=== PATIENT | male | born 1955 | race Hispanic/Latino ===

== ENCOUNTER 2018-08-16 07:15 | Day surgery (SDC) | payer MEDICARE ==
[2018-08-14 12:09] LABS: BASOPHILS % (AUTO) 0.5 % (0.0-5.0); EOSINOPHILS % (AUTO) 3.3 % (0.0-8.0); LYMPHOCYTES % (AUTO) 12.7 % (21.0-51.0); MEAN CORPUSCULAR HEMOGLOBIN 34.7 pg (27.0-33.0); MEAN CORPUSCULAR HGB CONC 35.5 g/dL (32.0-36.0); MEAN CORPUSCULAR VOLUME 97.8 fL (79-99); MONOCYTES % (AUTO) 5.9 % (3.0-13.0); NEUTROPHILS % (AUTO) 77.6 % (40.0-77.0); NUCLEATED RED BLOOD CELLS 0.1 % (0.0-0.19); PLATELET COUNT (AUTO) 180 K/uL (130-400); RED BLOOD CELL COUNT(AUTO) 3.37 MIL/uL (4.50-6.20); RED CELL DISTRIBUTION WIDTH 13.8 % (11.0-15.5); WHITE BLOOD COUNT (AUTO) 7.6 K/uL (4.8-10.8)
[2018-08-14 12:17] LABS: POTASSIUM 4.8 mmol/L (3.5-5.1)
[2018-08-14 12:18] VITALS: BP 119/55
[2018-08-14 12:26] LABS: CREATININE 8.7 mg/dL (0.5-1.5)
[2018-08-14 12:38] LABS: INR 0.99 (0.85-1.15); PARTIAL THROMBOPLASTIN TIME 29.6 SEC (26.3-35.5); PROTHROMBIN TIME 10.4 SEC (9.6-11.6)
--- NOTE | 2018-08-14 14:43 | NUR ---
advised Kenji VALENZUELA of BUN 40, RADIATION ONCOLOGIST 8.7 and that pt was not able to urinate due to being on dialysis and pt does not void. Per Chandan no new orders in regards to bun and precinct police lieutenant, okay to cancel urine.
[2018-08-16] VITALS (19 sets, daily range): BP systolic 133–164; BP diastolic 41–80
[~2018-08-16] VITALS: Ht 179.1 cm; Wt 116.1 kg
[~2018-08-16 07:15] MED LIST: AMLO5TAB9 PO; ASPI-891 PO; ATOR-2 PO; CHOL20004 PO; CINA30 PO; CLOP75TA14 PO; FAMO-136 PO; FOLI1TAB61 PO; HUMLIS7525 SQ; INSU100C14 SQ; ISOS60TA4 PO; LEVO25TA54 PO; LOSA100T58 PO; METO100T14 PO; NITR0.4T SL; SODIUM CHLORIDE 0.9% 500ML 500 ML IV SCH
[2018-08-16] MEDS ORDERED: INSULIN HUMULIN R 100 UNIT/ML 3ML SQ SCH ×2 (07:30→11:30)
[2018-08-16] MEDS ORDERED: SODIUM CHLORIDE 0.9% 1000ML 1,000 ML IV ONE (07:34)
[2018-08-16] MEDS ORDERED: IODIXANOL 320 MG/ML 100 ML VIAL ONE (09:35)
[2018-08-16] MEDS ORDERED: HEPARIN SODIUM 1000UNIT/ML 10ML VIAL ONE (09:35)
[2018-08-16] MEDS ORDERED: NITROGLYCERIN 5 MG/ML 10 ML VIAL IV ONE (09:35)
[2018-08-16] MEDS ORDERED: SODIUM BICARB 50MEQ 50ML VIAL ONE (09:35)
[2018-08-16] MEDS ORDERED: LIDOCAINE HCL 2% 20ML ONE (09:36)
[2018-08-16] MEDS ORDERED: FENTANYL CITRATE PF 50 MCG/1 ML 2ML VIAL ONE (09:52)
[2018-08-16] MEDS ORDERED: MIDAZOLAM HCL 1 MG/ML 2ML VIAL ONE (09:52)
[2018-08-16] MEDS ORDERED: DEXTROSE 50%-WATER 50 ML DISP.SYRIN IV PRN (10:30)
[2018-08-16] MEDS ORDERED: HYDRALAZINE HCL 20 MG/ML VIAL IV PRN (10:30)
[2018-08-16] MEDS ORDERED: NITROGLYCERIN 0.4 MG SL TAB SL PRN (10:30)
[2018-08-16] MEDS ORDERED: GLUCAGON 1MG KIT 1 MG ML IM PRN (10:30)
[2018-08-16] MEDS ORDERED: ATROPINE SULFATE 0.1 MG/ML 10 ML SYG IVP ONE (11:07)
[2018-08-16] MEDS ORDERED: ACETAMINOPHEN-CODEINE 300/30MG TAB ONE (14:11)
[2018-08-16] MEDS ORDERED: ACETAMINOPHEN-CODEINE 300/30MG TAB PO SCH (14:45)
== END 2018-08-16 16:40 | disposition home or self-care (01) ==
LOC: DAH 07:15
PROVIDERS: ATTEND Internal Medicine Cardiovascular Disease
DX: I65.23 Occlusion and stenosis of bilateral carotid arteries (principal); Z79.899 Other long term (current) drug therapy; Z98.890 Other specified postprocedural states; Z79.01 Long term (current) use of anticoagulants; Z83.3 Family history of diabetes mellitus; E03.9 Hypothyroidism, unspecified; E66.9 Obesity, unspecified; E11.51 Type 2 diabetes mellitus with diabetic peripheral angiopathy without gangrene; E11.21 Type 2 diabetes mellitus with diabetic nephropathy; N18.6 End stage renal disease; Z99.2 Dependence on renal dialysis; E11.40 Type 2 diabetes mellitus with diabetic neuropathy, unspecified
CPT/HCPCS: 36223; 36415; 71045; 80048; 82948 ×2; 85025; 85610; 85730; 93005; C1769; C1894 ×2; J0360; J1644; J1815 ×2; J2250; J3010; J3490 ×3; J7030; Q9967; 99156; 99157; J0461

== ENCOUNTER → 2018-09-10 | Outpatient (CLI) | payer MEDICARE ==
[~2018-09-10] VITALS: Ht 180.3 cm; Wt 117.2 kg
[~2018-09-10] MED LIST changes: +ASPI-1181 PO; +BACITRACIN 50,000 UNIT VIAL ONE; +BUPIVACAINE/EPI/PF 0.25% 30ML VIAL IJ ONE; +DEXAMETHASONE SOD PHOSPHATE 10MG/ML 1ML VIAL ONE; +EPHEDRINE SULFATE 50 MG/ML AMPULE ONE; +FENTANYL CITRATE PF 50 MCG/1 ML 2ML VIAL ONE; +GLYCOPYRROLATE 1 MG/5 ML SYRINGE ONE; +KETAMINE HCL 50MG/ML 10ML VIAL IJ ONE; +LIDOCAINE HCL 1% MDV 50ML VIAL ONE; +LIDOCAINE PF 2% 5ML ABBOJECT ONE; +MIDAZOLAM HCL 1 MG/ML 2ML VIAL ONE; +NEOSTIGMINE 5MG/5ML SYR IV ONE; +ONDANSETRON HCL 4 MG/2 ML VIAL ONE; +PROPOFOL 10 MG/ML 20ML VIAL IV ONE; +ROCURONIUM 10MG/1ML SYR 10 MG/ML ML ONE; +SODIUM CHLORIDE 0.9% 1000ML 1,000 ML IV ONE; -SODIUM CHLORIDE 0.9% 500ML 500 ML IV SCH; +SUCCINYLCHOLINE 200MG/10ML SYR ONE; +THROMBIN-JMI 20000 UNIT KIT TP ONE
[2018-09-10 09:15] VITALS: BP 147/72
[2018-09-10 09:35] LABS: BASOPHILS % (AUTO) 0.8 % (0.0-5.0); EOSINOPHILS % (AUTO) 4.7 % (0.0-8.0); LYMPHOCYTES % (AUTO) 16.4 % (21.0-51.0); MEAN CORPUSCULAR HEMOGLOBIN 33.6 pg (27.0-33.0); MEAN CORPUSCULAR HGB CONC 34.3 g/dL (32.0-36.0); MEAN CORPUSCULAR VOLUME 98.2 fL (79-99); NEUTROPHILS % (AUTO) 72.1 % (40.0-77.0); PLATELET COUNT (AUTO) 199 K/uL (130-400); RED BLOOD CELL COUNT(AUTO) 3.46 MIL/uL (4.50-6.20); RED CELL DISTRIBUTION WIDTH 13.9 % (11.0-15.5); WHITE BLOOD COUNT (AUTO) 9.4 K/uL (4.8-10.8)
[2018-09-10 09:44] LABS: POTASSIUM 5.4 mmol/L (3.5-5.1)
[2018-09-10] MEDS: CEFAZOLIN SODIUM 1 GM VIAL IVP SCH (11:00)
--- NOTE | 2018-09-11 09:20 | NUR ---
LABS ABNORMAL LABS REPORTED TO DR. BILLINGS, MESSAGE LEFT WITH BERT. PENDING FURTHER ORDERS
--- NOTE | 2018-09-11 10:51 | NUR ---
LABS ORDERS RECEIVED TO REPEAT K+ AM OF SURGERY
[2018-09-12 06:13] VITALS: BP 133/55
[2018-09-12] MEDS: CEFAZOLIN SODIUM 1 GM VIAL IVP SCH (06:40)
== END | disposition home or self-care (01) ==
LOC: DAH 10:00 → EDSTATUS 10:30 → DAHIP 09-12 05:48 → UNDOADMIN 09-12 05:48 → UNDODISIN 09-12 11:50
PROVIDERS: ATTEND Neurological Surgery
DX: I65.23 Occlusion and stenosis of bilateral carotid arteries (principal); Z53.8 Procedure and treatment not carried out for other reasons; I10 Essential (primary) hypertension; E11.9 Type 2 diabetes mellitus without complications; Z86.73 Personal history of transient ischemic attack (TIA), and cerebral infarction without residual deficits; Z95.1 Presence of aortocoronary bypass graft
CPT/HCPCS: 36415; 80051; 82310; 82565; 82947; 82948; 84132; 84520; 85025

== ENCOUNTER 2018-09-28 14:00 | Inpatient (IN) | payer MEDICARE ==
[~2018-09-28] VITALS: Ht 180.3 cm; Wt 115.7 kg
[~2018-09-28 14:00] MED LIST changes: -ASPI-1181 PO; -ASPI-891 PO; -BACITRACIN 50,000 UNIT VIAL ONE; -BUPIVACAINE/EPI/PF 0.25% 30ML VIAL IJ ONE; -CHOL20004 PO; -CINA30 PO; -DEXAMETHASONE SOD PHOSPHATE 10MG/ML 1ML VIAL ONE; -EPHEDRINE SULFATE 50 MG/ML AMPULE ONE; -FENTANYL CITRATE PF 50 MCG/1 ML 2ML VIAL ONE; -GLYCOPYRROLATE 1 MG/5 ML SYRINGE ONE; -KETAMINE HCL 50MG/ML 10ML VIAL IJ ONE; -LIDOCAINE HCL 1% MDV 50ML VIAL ONE; -LIDOCAINE PF 2% 5ML ABBOJECT ONE; -MIDAZOLAM HCL 1 MG/ML 2ML VIAL ONE; -NEOSTIGMINE 5MG/5ML SYR IV ONE; -ONDANSETRON HCL 4 MG/2 ML VIAL ONE; -PROPOFOL 10 MG/ML 20ML VIAL IV ONE; -ROCURONIUM 10MG/1ML SYR 10 MG/ML ML ONE; -SODIUM CHLORIDE 0.9% 1000ML 1,000 ML IV ONE; -SUCCINYLCHOLINE 200MG/10ML SYR ONE; -THROMBIN-JMI 20000 UNIT KIT TP ONE
[2018-09-28 15:43] VITALS: BP 156/58
[2018-09-28 15:44] LABS: BASOPHILS % (AUTO) 1.1 % (0.0-5.0); EOSINOPHILS % (AUTO) 4.8 % (0.0-8.0); HEMATOCRIT 34.8 % (42-54); LYMPHOCYTES % (AUTO) 12.7 % (21.0-51.0); MEAN CORPUSCULAR HEMOGLOBIN 34.7 pg (27.0-33.0); MEAN CORPUSCULAR VOLUME 99.2 fL (79-99); MONOCYTES % (AUTO) 6.1 % (3.0-13.0); NEUTROPHILS % (AUTO) 75.3 % (40.0-77.0); PLATELET COUNT (AUTO) 214 K/uL (130-400); RED CELL DISTRIBUTION WIDTH 13.8 % (11.0-15.5); WHITE BLOOD COUNT (AUTO) 8.6 K/uL (4.8-10.8)
[2018-09-28 15:54] LABS: CREATININE 6.2 mg/dL (0.5-1.5); POTASSIUM 3.5 mmol/L (3.5-5.1)
[2018-09-28 15:56] LABS: INR 0.95 (0.85-1.15); PARTIAL THROMBOPLASTIN TIME 28.6 SEC (26.3-35.5)
[2018-09-28] MEDS ORDERED: HUMLIS7525 SQ (16:31)
[2018-09-28] MEDS ORDERED: PANT20TA12 PO (16:31)
[2018-09-28] MEDS ORDERED: ASPI-1026 PO (16:32)
[2018-10-02] VITALS (40 sets, daily range): BP systolic 133–190; BP diastolic 32–75
[2018-10-02] MEDS ORDERED: SODIUM CHLORIDE 0.9% 1000ML 1,000 ML IV ONE (05:44)
--- NOTE | 2018-10-02 06:42 | NUR ---
POTENTIAL FOR INFECTION: SHAVED FROM NECK TO TOES PER BRADY QUIROZ MA, FOLLWED BY WIPING WITH LAKE: 2% CHLORHEXIDINE GLUCONATE CLOTH PATIENTS PRE-OP SKIN PREP.
[2018-10-02] MEDS ORDERED: INSULIN HUMULIN R 100 UNIT/ML 3ML ONE (06:56)
[2018-10-02] MEDS ORDERED: NEOSTIGMINE 5MG/5ML SYR IV ONE (07:05)
[2018-10-02] MEDS ORDERED: GLYCOPYRROLATE 1 MG/5 ML SYRINGE ONE (07:05)
[2018-10-02] MEDS ORDERED: ROCURONIUM 10MG/1ML SYR 10 MG/ML ML ONE (07:05)
[2018-10-02] MEDS ORDERED: PROPOFOL 10 MG/ML 20ML VIAL IV ONE (07:05)
[2018-10-02] MEDS ORDERED: NOREPINEPHRINE BITARTRATE 1 MG/1 ML ML IV ONE ×2 (07:05→07:11)
[2018-10-02] MEDS ORDERED: FENTANYL CITRATE PF 50 MCG/1 ML 2ML VIAL ONE (07:06)
[2018-10-02] MEDS ORDERED: BACITRACIN 50,000 UNIT VIAL ONE ×2 (07:06→09:05)
[2018-10-02] MEDS ORDERED: HEPARIN SODIUM 1000UNIT/ML 10ML VIAL ONE (07:06)
[2018-10-02] MEDS ORDERED: ESMOLOL HCL 10 MG/ML 10 ML VIAL ONE (07:06)
[2018-10-02] MEDS ORDERED: NICARDIPINE HCL 25 MG/10 ML ML IV ONE (07:09)
[2018-10-02] MEDS ORDERED: IODIXANOL 320 MG/ML 100 ML VIAL ONE (07:09)
[2018-10-02] MEDS: CEFAZOLIN SODIUM 1 GM VIAL ONE ×2 (07:28→07:50)
[2018-10-02] MEDS ORDERED: SODIUM CHLORIDE 0.9% 1000ML 1,000 ML IV SCH (08:00)
[2018-10-02] MEDS ORDERED: ATROPINE SULFATE 0.1 MG/ML 10 ML SYG IVP ONE ×2 (08:05→08:36)
[2018-10-02] MEDS ORDERED: NOREPINEPHRINE 4MG/NS 250ML 250 ML IV SCH (09:15)
[2018-10-02] MEDS ORDERED: NITROGLYCERIN 50 MG/D5% WATER 1 BOT IV PRN (09:15)
[2018-10-02] MEDS ORDERED: ONDANSETRON HCL 4 MG/2 ML VIAL IVP PRN (09:15)
[2018-10-02] MEDS ORDERED: MORPHINE SULFATE 4 MG/1ML SYG IV PRN (09:15)
[2018-10-02] MEDS ORDERED: DEXTROSE 50%-WATER 50 ML DISP.SYRIN IV PRN (09:15)
[2018-10-02] MEDS ORDERED: NITROGLYCERIN 0.4 MG SL TAB SL PRN (09:30)
[2018-10-02] MEDS: INSULIN HUMULIN R 100 UNIT/ML 3ML SQ SCH ×3 (11:27→20:58)
[2018-10-02] MEDS ORDERED: ACETAMINOPHEN 325 MG TAB ONE (15:27)
[2018-10-02] MEDS ORDERED: ACETAMINOPHEN 325 MG TAB PO PRN (15:30)
[2018-10-02] MEDS: METOPROLOL TARTRATE 50 MG TAB PO SCH (19:58)
--- NOTE | 2018-10-02 20:00 | NUR ---
Assumed care of patient after report received from Renetta FISHER. Initial assessment completed. Comfort measures done. No family in room. Call light and needed items placed readily at hand. Encouraged to call prn.
[2018-10-02] MEDS ORDERED: LOSARTAN 100 MG TABLET PO SCH (21:00)
[2018-10-02] MEDS ORDERED: ATORVASTATIN CALCIUM 40 MG TABLET PO SCH (21:00)
[2018-10-02] MEDS ORDERED: INSULIN HUMULIN 70/30 100 UNIT/ML 3ML SQ SCH (21:00)
[2018-10-02] MEDS ORDERED: AMLODIPINE BESYLATE 5 MG TAB PO SCH (21:00)
[2018-10-02] MEDS ORDERED: PANTOPRAZOLE SODIUM 20 MG PO SCH (21:00)
[2018-10-02] MEDS ORDERED: FOLIC ACID/VITAMIN B COMP W-C 1 MG CAPSULE PO SCH (21:00)
[2018-10-02] MEDS ORDERED: CLOPIDOGREL BISULFATE 75 MG TAB PO SCH (21:00)
[2018-10-03] VITALS (14 sets, daily range): BP systolic 127–169; BP diastolic 38–63
[2018-10-03] MEDS ORDERED: IPRATROPIUM/ALBUTEROL SULFATE 3 ML SOLUTION IH PRN (00:15)
[2018-10-03 04:51] LABS: HEMATOCRIT 25.9 % (42-54); MEAN CORPUSCULAR HEMOGLOBIN 33.6 pg (27.0-33.0); MEAN CORPUSCULAR HGB CONC 34.1 g/dL (32.0-36.0); MEAN CORPUSCULAR VOLUME 98.5 fL (79-99); PLATELET COUNT (AUTO) 194 K/uL (130-400); RED BLOOD CELL COUNT(AUTO) 2.64 MIL/uL (4.50-6.20); RED CELL DISTRIBUTION WIDTH 13.6 % (11.0-15.5); WHITE BLOOD COUNT (AUTO) 7.7 K/uL (4.8-10.8)
[2018-10-03 05:05] LABS: POTASSIUM 5.2 mmol/L (3.5-5.1)
[2018-10-03 05:10] LABS: CREATININE 10.1 mg/dL (0.5-1.5)
[2018-10-03] MEDS: INSULIN HUMULIN R 100 UNIT/ML 3ML SQ SCH ×2 (07:21→11:30)
[2018-10-03] MEDS ORDERED: INSULIN LISPRO 100 UNIT/ML 3ML SQ SCH (07:30)
[2018-10-03] MEDS: METOPROLOL TARTRATE 50 MG TAB PO SCH (08:15)
--- NOTE | 2018-10-03 08:32 | NUR ---
PT IS COMFORTABLE IN CHAIR. DR PAULINO HAS ROUNDED AND GAVE ORDERS FOR DISCHARGE HOME IF STABLE AFTER DIALYSIS. ALERT AND ORIENTED. SPEECH CLEAR. LAVA WITH BRUIT AND THRILL. PENDING DIALYSIS
[2018-10-03] MEDS ORDERED: FAMOTIDINE 20MG TAB 20 MG TAB PO SCH (09:00)
[2018-10-03] MEDS ORDERED: LEVOTHYROXINE 25 MCG TABLET PO SCH (09:00)
[2018-10-03] MEDS ORDERED: ASPIRIN 325 MG TABLET PO SCH (09:00)
[2018-10-03] MEDS ORDERED: INSULIN HUMULIN 70/30 100 UNIT/ML 3ML SQ SCH (09:00)
[2018-10-03] MEDS ORDERED: ISOSORBIDE MONO 60 MG TAB.SR PO SCH (09:00)
--- NOTE | 2018-10-03 11:41 | NUR ---
PT ON HEMODIALYSIS THERAPY AT PRESENT TIME. NO DISTRESS
--- NOTE | 2018-10-03 13:07 | NUR ---
DC PLAN VISITED WITH PATIENT. PATIENT CURRENTLY RECEIVING DIALYSIS AND TIRED. FROM LAST ADMISSION. PATIENT LIVES WITH SPOUSE. SEMI INDEPENDENT ABLE TO PERFORM SOME ADL'S. PATIENT HAS PROVIDER 3 HOURS. USES A CANE. GOES TO DIALYSIS MW IN [place] NOT SURE WHICH CLINIC ITS ON AIRPORT Addendum: 10/03/18 at 1309 by DAIJA MURPHY RN CM Amended: Links added.
--- NOTE | 2018-10-03 15:51 | NUR ---
PT DISCHARGED HOME WITH FAMILY . TO CAR VIA WHEELCHAIR. PRINTED AND VERBAL DISCHARGE INSTRUCTIONS GIVEN TO PT AND IN [place] AND TOGOLESE. VERBALIZE UNDERSTANDING. DRESSING TO RT NECK CHANGED. INCISION WAS CLEAN DRY AND WELL APPROXIMATED. SWABBED WITH BETADINE AND COVERED WITH TELFA AND OPSITE. INSTRUCTED TO REMOVE DRESSING FROM LAVA WHEN HE GETS HOME. NO ACUTE DISTRESS NOTED
[2018-10-04 08:17] LABS: HEPATITIS A ANTIBODY IGM Negative (Negative); HEPATITIS B CORE IGM Negative (Negative); HEPATITIS Bs ANTIGEN SCREEN P Negative (Negative)
== END 2018-10-03 16:03 | disposition home or self-care (01) | DRG 34 ==
LOC: EDSTATUS 14:00 → DAHIP 10-02 05:30 → 2CH 10-02 09:05
PROVIDERS: ADMIT Internal Medicine Cardiovascular Disease; ATTEND Internal Medicine Cardiovascular Disease
PROC: 037H3DZ Dilation of Right Common Carotid Artery with Intraluminal Device, Percutaneous Approach (ICD-10-PCS; 2018-10-02)
PROC: 037K3DZ Dilation of Right Internal Carotid Artery with Intraluminal Device, Percutaneous Approach (ICD-10-PCS; 2018-10-02)
PROC: B3161ZZ Fluoroscopy of Right Internal Carotid Artery using Low Osmolar Contrast (ICD-10-PCS; 2018-10-02)
PROC: B3131ZZ Fluoroscopy of Right Common Carotid Artery using Low Osmolar Contrast (ICD-10-PCS; principal; 2018-10-02 07:00)
PROC: 5A1D70Z Performance of Urinary Filtration, Intermittent, Less than 6 Hours Per Day (ICD-10-PCS; 2018-10-03)
DX: I65.23 Occlusion and stenosis of bilateral carotid arteries (principal); N18.6 End stage renal disease; I12.0 Hypertensive chronic kidney disease with stage 5 chronic kidney disease or end stage renal disease; I42.9 Cardiomyopathy, unspecified; E11.22 Type 2 diabetes mellitus with diabetic chronic kidney disease; E03.9 Hypothyroidism, unspecified; E11.51 Type 2 diabetes mellitus with diabetic peripheral angiopathy without gangrene; I25.10 Atherosclerotic heart disease of native coronary artery without angina pectoris; J44.9 Chronic obstructive pulmonary disease, unspecified; E66.01 Morbid (severe) obesity due to excess calories; Z68.35 Body mass index [BMI] 35.0-35.9, adult; Z99.2 Dependence on renal dialysis; Z87.891 Personal history of nicotine dependence; Z95.1 Presence of aortocoronary bypass graft; Z83.3 Family history of diabetes mellitus; Z89.432 Acquired absence of left foot
CPT/HCPCS: 36215; 36415; 36591; 37215; 71045; 80048; 80061; 80074; 82948; 84132; 85025; 85027; 85610; 85730; 86850; 86900; 86901; 86922; 90935; 93005; 94664; C1725; G0378; J0461; J0690; J1644; J1815; J2405; J2704; J2710; J3010; J3490; J7030; Q9967

== ENCOUNTER 2018-10-23 11:00 | Inpatient (IN) | payer MEDICARE ==
[~2018-10-23] VITALS: Ht 172.7 cm; Wt 115.2 kg
[~2018-10-23 11:00] MED LIST changes: +ASPI-1026 PO
[2018-10-23 11:27] VITALS: BP 129/62
[2018-10-23 12:03] LABS: BASOPHILS % (AUTO) 0.6 % (0.0-5.0); EOSINOPHILS % (AUTO) 5.2 % (0.0-8.0); HEMATOCRIT 34.5 % (42-54); LYMPHOCYTES % (AUTO) 25.7 % (21.0-51.0); MEAN CORPUSCULAR HEMOGLOBIN 34.3 pg (27.0-33.0); MEAN CORPUSCULAR HGB CONC 34.9 g/dL (32.0-36.0); MEAN CORPUSCULAR VOLUME 98.3 fL (79-99); MONOCYTES % (AUTO) 7.5 % (3.0-13.0); NUCLEATED RED BLOOD CELLS 0.1 % (0.0-0.19); PLATELET COUNT (AUTO) 213 K/uL (130-400); RED BLOOD CELL COUNT(AUTO) 3.51 MIL/uL (4.50-6.20); RED CELL DISTRIBUTION WIDTH 13.8 % (11.0-15.5); WHITE BLOOD COUNT (AUTO) 7.4 K/uL (4.8-10.8)
[2018-10-23 12:30] LABS: INR 0.98 (0.85-1.15); PARTIAL THROMBOPLASTIN TIME 29.7 SEC (26.3-35.5); PROTHROMBIN TIME 10.3 SEC (9.6-11.6)
[2018-10-23 12:31] LABS: POTASSIUM 4.4 mmol/L (3.5-5.1)
[2018-10-23 12:33] LABS: CREATININE 8.2 mg/dL (0.5-1.5)
[2018-10-23] MEDS ORDERED: LOPE2TAB26 PO (14:39)
--- NOTE | 2018-10-23 14:48 | NUR ---
Critical Lab Value Creatinine 8.2 BUN 28 reported to BIANCA Lewis. No new orders received, patient on dialysis. OK to proceed.
--- NOTE | 2018-10-24 16:51 | NUR ---
CHEST XRAY INFORMED BIANCA MACHADO OF ABNORMAL CHEST XRAY. NO ORDERS RECEIVED. PROCEED WITH PLANNED PROCEDURE.
[2018-10-25] VITALS (28 sets, daily range): BP systolic 104–180; BP diastolic 26–127
[2018-10-25] MEDS ORDERED: SODIUM CHLORIDE 0.9% 500ML 500 ML IV SCH (05:00)
[2018-10-25] MEDS ORDERED: SODIUM CHLORIDE 0.9% 1000ML 1,000 ML IV ONE (05:47)
--- NOTE | 2018-10-25 06:25 | NUR ---
PUPIL OCCURRENCE: WHITE COLOR COATED FILM COVERING LEFT PUPIL. UNABLE TO VISUALIZE. PATIENT LEGALLY BLIND TO LEFT EYE
--- NOTE | 2018-10-25 06:30 | NUR ---
POTENTIAL FOR INFECTION: SHAVED LEFT SIDED NECK, CHEST AND GROIN PER HARI SORIANO, FOLLOWED BY WIPING WITH LAKE: 2% CHLORHEXIDINE GLUCONATE CLOTH PATIENTS PRE-OP SKIN PREP.
[2018-10-25] MEDS ORDERED: BACITRACIN 50,000 UNIT VIAL ONE (06:36)
[2018-10-25] MEDS ORDERED: MIDAZOLAM HCL 1 MG/ML 2ML VIAL ONE (07:06)
[2018-10-25] MEDS ORDERED: SUCCINYLCHOLINE 200MG/10ML SYR ONE (07:06)
[2018-10-25] MEDS ORDERED: GLYCOPYRROLATE 1 MG/5 ML SYRINGE ONE (07:06)
[2018-10-25] MEDS ORDERED: ONDANSETRON HCL 4 MG/2 ML VIAL ONE (07:06)
[2018-10-25] MEDS ORDERED: DEXAMETHASONE SOD PHOSPHATE 10MG/ML 1ML VIAL ONE (07:06)
[2018-10-25] MEDS ORDERED: LIDOCAINE PF 2% 5ML ABBOJECT ONE (07:06)
[2018-10-25] MEDS ORDERED: ROCURONIUM 10MG/1ML SYR 10 MG/ML ML ONE (07:07)
[2018-10-25] MEDS ORDERED: FENTANYL CITRATE PF 50 MCG/1 ML 2ML VIAL ONE (07:07)
[2018-10-25] MEDS ORDERED: PROPOFOL 10 MG/ML 20ML VIAL IV ONE (07:07)
[2018-10-25] MEDS ORDERED: HEPARIN SODIUM 1000UNIT/ML 10ML VIAL ONE (07:11)
[2018-10-25] MEDS ORDERED: IODIXANOL 320 MG/ML 100 ML VIAL ONE (07:11)
[2018-10-25] MEDS ORDERED: ATROPINE SULFATE 0.1 MG/ML 10 ML SYG IVP ONE (07:11)
[2018-10-25] MEDS ORDERED: EPHEDRINE SULFATE 50 MG/ML AMPULE ONE (07:18)
[2018-10-25] MEDS ORDERED: NEOSTIGMINE 5MG/5ML SYR IV ONE (07:18)
[2018-10-25] MEDS ORDERED: CEFAZOLIN SODIUM 1 GM VIAL ONE (07:33)
[2018-10-25] MEDS ORDERED: NITROGLYCERIN 5 MG/ML 10 ML VIAL IV ONE (07:45)
[2018-10-25] MEDS ORDERED: NITROGLYCERIN 0.4 MG SL TAB SL PRN (09:15)
[2018-10-25] MEDS ORDERED: ONDANSETRON HCL 4 MG/2 ML VIAL IVP PRN (09:15)
[2018-10-25] MEDS ORDERED: PHARMACY COMMUNICATION MISC SCH (09:15)
[2018-10-25] MEDS ORDERED: DEXTROSE 50%-WATER 50 ML DISP.SYRIN IV PRN (09:15)
--- NOTE | 2018-10-25 09:44 | NUR ---
PER NORIS LOGAN RN FIRE CONTROL TECHNICIAN B, DR MCKEON (COVERING FOR DR FONTENOT) IS AWARE OF CONSULT AND WILL SEE PATIENT.
[2018-10-25] MEDS ORDERED: NOREPINEPHRINE 4MG/NS 250ML 250 ML IV PRN (10:45)
[2018-10-25] MEDS ORDERED: NITROGLYCERIN 50 MG/D5% WATER 1 BOT IV PRN (11:00)
[2018-10-25] MEDS: INSULIN HUMULIN R 100 UNIT/ML 3ML SQ SCH ×3 (11:10→21:00)
[2018-10-25] MEDS: ACETAMINOPHEN 325 MG TAB PO PRN ×2 (12:10→21:19)
--- NOTE | 2018-10-25 16:04 | NUR ---
YUDI PLAN VISITED WITH PATIENT. PATIENT IN CVR SLEEPING. SHARITA WILL CONTINUE TO FOLLOW. Addendum: 10/25/18 at 1605 by DAIJA MURPHY RN CM Amended: Links added.
--- NOTE | 2018-10-25 17:15 | NUR ---
REMOVED RIGHT RADIAL ARTERIAL LINE, APPLIED DIRECT MANUAL PRESSURE FOR 10 MINUTES. APPLIED 4X4 GAUZE AND CLEAR OPSITE.
[2018-10-25] MEDS ORDERED: CLOPIDOGREL BISULFATE 75 MG TAB PO SCH (21:00)
[2018-10-25] MEDS ORDERED: ISOSORBIDE MONO 60 MG TAB.SR PO SCH (21:00)
[2018-10-25] MEDS ORDERED: AMLODIPINE BESYLATE 5 MG TAB PO SCH (21:00)
[2018-10-25] MEDS ORDERED: FAMOTIDINE 20MG TAB 20 MG TAB PO SCH (21:00)
[2018-10-25] MEDS: LOPERAMIDE HCL 2 MG CAP PO SCH (21:00)
[2018-10-25] MEDS ORDERED: INSULIN HUMULIN 70/30 100 UNIT/ML 3ML SQ SCH (21:00)
[2018-10-25] MEDS ORDERED: ATORVASTATIN CALCIUM 40 MG TABLET PO SCH (21:00)
[2018-10-25] MEDS: METOPROLOL TARTRATE 50 MG TAB PO SCH (21:19)
[2018-10-26] VITALS (20 sets, daily range): BP systolic 103–179; BP diastolic 47–66
[2018-10-26 04:13] LABS: HEMATOCRIT 30.9 % (42-54); MEAN CORPUSCULAR HEMOGLOBIN 33.6 pg (27.0-33.0); MEAN CORPUSCULAR HGB CONC 34.4 g/dL (32.0-36.0); MEAN CORPUSCULAR VOLUME 97.9 fL (79-99); PLATELET COUNT (AUTO) 168 K/uL (130-400); RED BLOOD CELL COUNT(AUTO) 3.16 MIL/uL (4.50-6.20); RED CELL DISTRIBUTION WIDTH 13.4 % (11.0-15.5); WHITE BLOOD COUNT (AUTO) 6.9 K/uL (4.8-10.8)
[2018-10-26 04:45] LABS: POTASSIUM 5.3 mmol/L (3.5-5.1)
[2018-10-26 04:48] LABS: CREATININE 8.9 mg/dL (0.5-1.5)
[2018-10-26] MEDS: INSULIN HUMULIN R 100 UNIT/ML 3ML SQ SCH ×2 (06:22→11:30)
[2018-10-26] MEDS ORDERED: LEVOTHYROXINE 25 MCG TABLET PO SCH (06:30)
[2018-10-26] MEDS ORDERED: PANT40TA25 PO (08:52)
[2018-10-26] MEDS ORDERED: MAG HYDROX/AL HYDROX/SIMETH ES 30 ML SUSP UDCUP PO PRN (09:00)
[2018-10-26] MEDS ORDERED: ASPIRIN 325 MG TABLET PO SCH (09:00)
[2018-10-26] MEDS: LOPERAMIDE HCL 2 MG CAP PO SCH (09:00)
[2018-10-26] MEDS ORDERED: LOSARTAN 100 MG TABLET PO SCH (09:00)
[2018-10-26] MEDS ORDERED: FOLIC ACID/VITAMIN B COMP W-C 1 MG CAPSULE PO SCH (09:00)
[2018-10-26] MEDS ORDERED: INSULIN HUMULIN 70/30 100 UNIT/ML 3ML SQ SCH (09:00)
[2018-10-26] MEDS ORDERED: PANTOPRAZOLE SODIUM 40 MG TABLET.DR PO SCH (09:47)
--- NOTE | 2018-10-26 11:22 | NUR ---
DIALYSIS FINISHED, 1L REMOVED.
[2018-10-26] MEDS: METOPROLOL TARTRATE 50 MG TAB PO SCH (11:54)
--- NOTE | 2018-10-26 12:36 | NUR ---
GAVE PATIENT DC INSTRUCTIONS. INFORMED PATIENT ABOUT DC MEDICATIONS AND MD FOLLOW UP APPTS. PATIENT READY TO GO HOME. RIGHT ARM IV'S D/C.
--- NOTE | 2018-10-27 07:49 | NUR ---
DC PLAN PATIENT DISCHARGED HOME ALREADY GONE NO NEEDS VERBALIZED BY NURSING STAFF. Addendum: 10/27/18 at 0751 by DAIJA MURPHY RN CM Amended: Links added.
[2018-10-27 08:13] LABS: HEPATITIS A ANTIBODY IGM Negative (Negative); HEPATITIS B CORE IGM Negative (Negative); HEPATITIS Bs ANTIGEN SCREEN P Negative (Negative)
== END 2018-10-26 12:52 | disposition home or self-care (01) | DRG 34 ==
LOC: EDSTATUS 11:00 → DAHIP 10-25 05:32 → 2CV 10-25 09:40 → 2CH 10-25 15:48
PROVIDERS: ADMIT Internal Medicine Pulmonary Disease; ATTEND Internal Medicine Pulmonary Disease
PROC: 037J3DZ Dilation of Left Common Carotid Artery with Intraluminal Device, Percutaneous Approach (ICD-10-PCS; 2018-10-25)
PROC: B3171ZZ Fluoroscopy of Left Internal Carotid Artery using Low Osmolar Contrast (ICD-10-PCS; 2018-10-25)
PROC: B31B1ZZ Fluoroscopy of Left External Carotid Artery using Low Osmolar Contrast (ICD-10-PCS; 2018-10-25)
PROC: B3141ZZ Fluoroscopy of Left Common Carotid Artery using Low Osmolar Contrast (ICD-10-PCS; principal; 2018-10-25 07:22)
PROC: 037L3DZ Dilation of Left Internal Carotid Artery with Intraluminal Device, Percutaneous Approach (ICD-10-PCS; 2018-10-25 07:22)
PROC: 5A1D70Z Performance of Urinary Filtration, Intermittent, Less than 6 Hours Per Day (ICD-10-PCS; 2018-10-26)
DX: I65.23 Occlusion and stenosis of bilateral carotid arteries (principal); N18.6 End stage renal disease; I12.0 Hypertensive chronic kidney disease with stage 5 chronic kidney disease or end stage renal disease; Z99.2 Dependence on renal dialysis; E11.22 Type 2 diabetes mellitus with diabetic chronic kidney disease; E11.51 Type 2 diabetes mellitus with diabetic peripheral angiopathy without gangrene; E03.9 Hypothyroidism, unspecified; E66.9 Obesity, unspecified; I25.10 Atherosclerotic heart disease of native coronary artery without angina pectoris; Z79.4 Long term (current) use of insulin; Z79.82 Long term (current) use of aspirin; Z79.899 Other long term (current) drug therapy; Z83.3 Family history of diabetes mellitus; Z95.1 Presence of aortocoronary bypass graft; Z68.38 Body mass index [BMI] 38.0-38.9, adult
CPT/HCPCS: 36415; 37215; 71045; 80048; 80074; 82948; 84132; 85025; 85027; 85610; 85730; 86850; 86900; 86901; 86922; 90935; 93005; C1725; C1769; G0378; J0330; J0461; J0690; J1100; J1644; J1815; J2001; J2250; J2405; J2704; J2710; J3010; J3490; J7030; Q9967

== ENCOUNTER 2018-11-01 16:48 | Observation (INO) | payer MEDICARE ==
[~2018-11-01] VITALS: Ht 180.3 cm; Wt 116.4 kg
[~2018-11-01 16:48] MED LIST changes: +LOPE2TAB26 PO; +PANT40TA25 PO
[2018-11-01 17:29] LABS: BASOPHILS % (AUTO) 1.1 % (0.0-5.0); EOSINOPHILS % (AUTO) 4.3 % (0.0-8.0); HEMATOCRIT 29.3 % (42-54); LYMPHOCYTES % (AUTO) 22.7 % (21.0-51.0); MEAN CORPUSCULAR HEMOGLOBIN 33.4 pg (27.0-33.0); MEAN CORPUSCULAR HGB CONC 34.4 g/dL (32.0-36.0); MEAN CORPUSCULAR VOLUME 97.1 fL (79-99); MONOCYTES % (AUTO) 6.9 % (3.0-13.0); PLATELET COUNT (AUTO) 192 K/uL (130-400); RED BLOOD CELL COUNT(AUTO) 3.02 MIL/uL (4.50-6.20); RED CELL DISTRIBUTION WIDTH 13.7 % (11.0-15.5); WHITE BLOOD COUNT (AUTO) 6.6 K/uL (4.8-10.8)
[2018-11-01 17:38] LABS: CREATININE 7.7 mg/dL (0.5-1.5); POTASSIUM 5.1 mmol/L (3.5-5.1)
[2018-11-01 17:40] LABS: INR 0.93 (0.85-1.15); PARTIAL THROMBOPLASTIN TIME 30.8 SEC (26.3-35.5); PROTHROMBIN TIME 9.8 SEC (9.6-11.6)
[2018-11-01 17:45] LABS: BILIRUBIN,DIRECT 0.1 mg/dL (0.0-0.3); BILIRUBIN,TOTAL 0.4 mg/dL (0.2-1.0); TOTAL PROTEIN, SERUM 6.8 g/dL (6.0-8.3)
[2018-11-02 03:15] LABS: TROPONIN I 0.07 ng/mL (0.00-0.06)
--- NOTE | 2018-11-02 09:00 | NUR ---
DYSPHAGIA EVAL COMPLETED. -S/S OF ASPIRATION. RECOMMEND MBSS, REGULAR, THIN LIQUIDS, PILLS WHOLE WITH LIQUIDS, PATIENT INFORMATION: Pt IS A 62 YEAR OLD MALE WHO WAS REFERRED FOR A BEDSIDE DYSPHAGIA EVALUATION SECONDARY TO ADMISSION FOR DYSPHAGIA. Pt REPORTS THAT HE FEELS PAIN WHEN HE SWALLOWS AND THE FOOD COMES BACK UP. Pt AAOX3 AND COOPERATIVE DURING THE EVALUATION. Pt CURRENTLY ADMITTED SECONDARY TO DYSPHAGIA. Pt HAS A PAST MEDICAL HISTORY SIGNIFICANT FOR DM, ESRD-HD, BLIND RIGHT EYE, BILATERAL CAROTID ARTERY STENOSIS WITH TCAR 10/25/2018, CAD WITH CABG 08/04/15, PVD WITH TMA, HYPOTHYROIDISM, OBESITY, HYPERTENSION. EVALUATION: Pt WITH STRONG ORAL MOTOR COORDINATION, ROM AND STRENGTH. Pt WITH TIMELY PHARYNGEAL RESPONSE AND LARYNGEAL ELEVATION PRESENT DURING PALPATION. NO S/S OF ASPIRATION PRESENT DURING EVALUATION. Pt WITH COMPLAINS OF ODYNOPHAGIA. MBSS IS RECOMMENDED TO RULE OUT SILENT ASPIRATION. RECOMMENDATIONS: 1. MBSS 2. REGULAR, THIN LIQUIDS; PILLS WHOLE WITH LIQUIDS. 3. COMPENSATORY STRATEGIES: *SEATED AT 90 *REMAIN UPRIGHT 30 MINUTES AFTER THE MEAL. G-CODES SWALLOWING: [id number] Addendum: 11/02/18 at [address] Amended: Links added.
--- NOTE | 2018-11-02 10:30 | NUR ---
MBSS COMPLETED. -S/S OF ASPIRATION. RECOMMEND REGULAR TEXTURE, THIN LIQUIDS, PILLS WHOLE WITH LIQUIDS. PATIENT INFORMATION: Pt IS A 62 YEAR OLD MALE WHO WAS REFERRED FOR AN MBSS SECONDARY TO COMPLAINS OF ODYNOPHAGIA. Pt REPORTS THAT HE FEELS PAIN WHEN HE SWALLOWS AND THE FOOD COMES BACK UP. Pt AAOX3 AND COOPERATIVE DURING THE MBSS. Pt CURRENTLY ADMITTED SECONDARY TO DYSPHAGIA. Pt HAS A PAST MEDICAL HISTORY SIGNIFICANT FOR DM, ESRD-HD, BLIND RIGHT EYE, BILATERAL CAROTID ARTERY STENOSIS WITH TCAR 10/25/2018, CAD WITH CABG 08/04/15, PVD WITH TMA, HYPOTHYROIDISM, OBESITY, HYPERTENSION. MBSS INTERPRETATION: Pt WITH STRONG ORAL MOTOR COORDINATION, ROM AND STRENGTH. Pt WITH TIMELY PHARYNGEAL RESPONSE AND STRONG LARYNGEAL ELEVATION/EXCURSION. NO S/S OF ASPIRATION PRESENT DURING MBSS. NO RESIDUE OR STASIS OF BOLUS NOTED IN PHARYNX. Pt WITH COMPLAINS OF PAIN WITH SOLID TEXTURE. PLEASE NOTE Pt WITH RECENT TCAR WITH POSSIBLE SWELLING S/P SURGERY. A-P VIEW: UNREMARKABLE. TRIALS: 1. TSP PUREED: GOOD 2. TSP PUDDING: GOOD 3. TSP MIXED: GOOD 4. COOKIE: GOOD 5. THIN LIQUIDS CUP SIP: GOOD 6. PUREED A-P: GOOD RECOMMENDATIONS: 1. REGULAR, THIN LIQUIDS; PILLS WHOLE WITH LIQUIDS. 2. COMPENSATORY STRATEGIES (PROPHYLAXIS): *SEATED AT 90 *REMAIN UPRIGHT 30 MINUTES AFTER THE MEAL. G-CODES SWALLOWING: [id number] Addendum: 11/02/18 at 1246 by EDER DIAZ [facility] Amended: Links added.
[2018-11-02 11:57] LABS: TROPONIN I 0.07 ng/mL (0.00-0.06)
--- NOTE | 2018-11-02 13:00 | NUR ---
RECEIVED FROM ED VIA STRETCHER ACCOMPANIED BY ED NURSE. AAOX3. ORIENTED TO ROOM AND SURROUNDINGS. COMPLETE ASSESSMENT DONE. CALL LIGHT WITHIN REACH. SPOUSE AT BEDSIDE.
[2018-11-02 13:01] VITALS: BP 150/34
--- NOTE | 2018-11-02 13:05 | NUR ---
SCD'S APPLIED TO BLE'S.
--- NOTE | 2018-11-02 13:30 | NUR ---
HD IN PROGRESS. PT. W/O C/O.
--- NOTE | 2018-11-02 15:40 | NUR ---
DR. Adonis LAMB IN ROOM ASSESSING PT. AND SPEAKING WITH PT. AND PT.'S SPOUSE AT BEDSIDE RE:PLAN OF CARE AND DISCHARGE DISPOSITION. QUESTIONS ANSWERED BY DR. LAMB.
--- NOTE | 2018-11-02 16:00 | NUR ---
HD COMPLETED. DENIES ANY C/O. SPOUSE AT BEDSIDE.
[2018-11-02 16:15] VITALS: BP 154/32
--- NOTE | 2018-11-02 18:00 | NUR ---
HL REMOVED, CATHETER INTACT. DISCHARGE INSTRUCTIONS GIVEN, PT. AND SPOUSE AT BEDSIDE VERBALIZED MUTUAL UNDERSTANDING.
== END 2018-11-02 18:13 | disposition home or self-care (01) ==
LOC: EDH 16:48 → EDHIP 20:30 → 2AH 11-02 12:55
PROVIDERS: ADMIT Internal Medicine Pulmonary Disease; ATTEND Internal Medicine Pulmonary Disease
DX: I65.23 Occlusion and stenosis of bilateral carotid arteries (principal); E03.9 Hypothyroidism, unspecified; E11.22 Type 2 diabetes mellitus with diabetic chronic kidney disease; E11.51 Type 2 diabetes mellitus with diabetic peripheral angiopathy without gangrene; I12.0 Hypertensive chronic kidney disease with stage 5 chronic kidney disease or end stage renal disease; N18.6 End stage renal disease; E66.9 Obesity, unspecified; R68.89 Other general symptoms and signs; I25.10 Atherosclerotic heart disease of native coronary artery without angina pectoris; R13.10 Dysphagia, unspecified; G47.33 Obstructive sleep apnea (adult) (pediatric); Z79.4 Long term (current) use of insulin; Z79.82 Long term (current) use of aspirin; Z79.890 Hormone replacement therapy; Z79.899 Other long term (current) drug therapy; Z82.49 Family history of ischemic heart disease and other diseases of the circulatory system; Z95.1 Presence of aortocoronary bypass graft; Z99.2 Dependence on renal dialysis
CPT/HCPCS: 36415 ×2; 70490; 71046; 74230; 80048; 80076; 82550 ×2; 82948; 83874 ×2; 84484 ×2; 85025; 85610; 85730; 92610; 92611; 99284; A4600; G0378 ×22; 90935; G0257